=== PATIENT | female | born 1935 | race Caucasian/White ===

== ENCOUNTER 2018-05-25 12:46 | Inpatient (IN) | payer MEDICARE ==
[~2018-05-25] VITALS: Ht 165.1 cm; Wt 46.8 kg
[2018-05-25 13:20] LABS: BASOPHILS 0.7 % (0-2); HEMOGLOBIN 13.4 g/dL (12-16); IMMATURE GRANULOCYTES 0.2 % (0-5); LYMPHOCYTES 29.2 % (15-50); MCH 31.2 pg (26.0-34.0); MCHC 33.5 g/dL (31.0-37.0); MCV 93.2 fL (80.0-100.0); MEAN PLATELET VOLUME 10.8 fL (7.4-10.4); MONOCYTES 10.3 % (2-11); NEUTROPHILS 56.6 % (40-80); PLATELET COUNT 191 10x3/uL (130-400); RBC 4.29 10x6/uL (4.00-5.40); RDW 12.9 % (11.5-14.5)
[2018-05-25 13:36] LABS: ALBUMIN 3.7 g/dL (3.4-5.0); ANION GAP 13.1 mmol/L (8-16); BILIRUBIN - TOTAL 1.8 mg/dL (0.2-1.3); CALCIUM 8.9 mg/dL (8.5-10.1); CARBON DIOXIDE 30.1 mmol/L (21.0-32.0); CREATININE - SERUM 1.2 mg/dL (0.6-1.3); POTASSIUM - SERUM 3.2 mmol/L (3.5-5.1); PROTEIN - SERUM 7.7 g/dL (6.4-8.2)
[2018-05-25 13:45] LABS: THYROID STIMULATING HORMONE 3.71 uIU/mL (0.36-3.74)
[2018-05-25 14:32] LABS: INR 1.02 (0.85-1.17); PROTIME 12.9 SECONDS (11.6-15.0)
[2018-05-25 14:41] LABS: UDS - AMPHET NEGATIVE QUAL (NEGATIVE); UDS - BARB NEGATIVE QUAL (NEGATIVE); UDS - BENZO NEGATIVE QUAL (NEGATIVE); UDS - COCAINE NEGATIVE QUAL (NEGATIVE); UDS - OPIATE NEGATIVE QUAL (NEGATIVE); UDS - PCP NEGATIVE QUAL (NEGATIVE); UDS - THC NEGATIVE QUAL (NEGATIVE)
[2018-05-25 14:45] LABS: APPEARANCE HAZY (CLEAR); BILIRUBIN NEGATIVE (NEGATIVE); COLOR YELLOW (YELLOW); GLUCOSE NEGATIVE (NEGATIVE); KETONE NEGATIVE (NEGATIVE); NITRITE NEGATIVE (NEGATIVE); PROTEIN NEGATIVE (NEGATIVE); SPECIFIC GRAVITY 1.015 (1.005-1.020); UROBILINOGEN NORMAL (NORMAL)
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
[2018-05-25 14:47] LABS: ALBUMIN 3.7 g/dL (3.4-5.0); ALKALINE PHOSPHATASE 79 U/L (46-116); ALT (SGPT) 16 U/L (10-68); AMYLASE - SERUM 41 U/L (25-115); BILIRUBIN - DIRECT 0.31 mg/dL (0.00-0.30); BILIRUBIN - INDIRECT 1.47 mg/dL (0.00-1.00); BILIRUBIN - TOTAL 1.78 mg/dL (0.2-1.3); CHOL - HDL RATIO 2.7 ratio (2.3-4.1); CHOLESTEROL, TOTAL 199 mg/dL (0-200); CKMB 0.7 U/L (0.0-3.6); HDL CHOLESTEROL 74 mg/dL (32-96); LDL CHOLESTEROL 94 mg/dL (0-100); LDL-HDL RATIO 1.3 ratio (1.5-3.5); LIPASE 198 U/L (73-393); PRO BNP 451 pg/mL (0-450); PROTEIN - SERUM 7.8 g/dL (6.4-8.2); T4 THYROXINE 8.8 ug/dL (4.7-13.3); TRIGLYCERIDE 156 mg/dL (30-200); TROPONIN-I < 0.017 ng/mL (0.000-0.060)
[2018-05-25 14:49] LABS: RED CELLS - URINE 0-5 /hpf (0-5)
[2018-05-25 14:50] LABS: BACTERIA MODERATE /hpf (NONE SEEN); EPITHELIAL CELLS 0-5 /hpf (0-5)
[2018-05-25 15:28] LABS: ERYTHROCYTE SEDIMENTATION RATE 12 mm/hr (0-30)
[2018-05-25 16:42] VITALS: BP 144/69; BMI 17.2
[2018-05-25] MEDS ORDERED: NAMENDA10 MG PO (16:53)
[2018-05-25] MEDS ORDERED: BAYER CHEWABLE81 MG PO (18:34)
[2018-05-25] MEDS ORDERED: COLACE100 MG PO (18:34)
[2018-05-25] MEDS ORDERED: PRINIVIL20 MG PO (18:35)
[2018-05-25] MEDS ORDERED: PROSCAR5 MG PO (18:36)
[2018-05-25] MEDS ORDERED: PLAVIX75 MG PO (18:36)
[2018-05-25] MEDS ORDERED: NORCO 7.5/325 T1 TA1 PO (18:36)
--- NOTE | 2018-05-25 20:30 | NUR ---
RECEIVED IN HALLWAY. STANDING AT NURSES STATION. VERY CONFUSED. CALM AND COOPERATIVE WITH CARE AND ASSESSMENT. ENCOURAGE TO EXPRESS NEEDS. REDIRECT AND REORIENT NEEDED. SITTING ON THE EDGE OF HER BED AT THIS TIME. CONTINUE PLAN OF CARE
[2018-05-25 23:50] VITALS: BP 159/84
[2018-05-26 06:49] LABS: ANION GAP 11.1 mmol/L (8-16); CALCIUM 8.7 mg/dL (8.5-10.1); POTASSIUM - SERUM 3.1 mmol/L (3.5-5.1)
[2018-05-26 08:00] VITALS: BP 167/90
[2018-05-26 08:21] LABS: FOLATE (FOLIC ACID) - SERUM 14.6 ng/mL (>3.0)
--- NOTE | 2018-05-26 10:00 | NUR ---
RECEIVED PATIENT IN DINING ROOM FOR B'FAST, ALERT, RESTLESS, CONFUSED, STATED THAT SHE HAD TO GO HOME TO FEED HER DOG AND HER CAR IS IN THE PARKING LOT. MEMORY POOR. PT STATED THAT HER MEMORY IS POOR DUE TO HER HAVING ALZHEIMER'S. DISEASE. MEDS ADMIN PER ORDERS WITH COMPLETE MED COMPLIANCE NOTED. NO S/S ADVERSE REACTION NOTED. COOPERATIVE WITH GROUP AND STAFF REQUESTS. RE-DIRECTABLE AT THIS TIME. CONT POC INCLUDING MEDS AND GROUP THERAPY DIRECTED.
[2018-05-26 10:42] VITALS: BMI 17.1
--- NOTE | 2018-05-26 13:48 | NUR ---
PT PACING DAYROOM AND HALLWAY ATTEMPTING TO EXIT THE UNIT WHEN REDIRECTED PT BECOMES VERY UPSET. PT IS VERY ANXIOUS AT THIS TIME. PRN ATIVAN 0.5MG PO GIVEN PER ORDER. WILL CONTINUE TO MONITOR Q 15 MINUTES FOR SAFETY.
--- NOTE | 2018-05-26 14:30 | NUR ---
PRN MED EFFECTIVE AT THIS TIME. PT SITTING IN DAY ROOM WITH OTHER PEERS. NO ANXIETY OR AGGRESSION NOTED. WILL CONTINUE TO MONITOR Q 15 MINUTES FOR SAFETY.
[2018-05-26 19:45] VITALS: BP 137/79
--- NOTE | 2018-05-26 22:14 | NUR ---
RECEIVED IN DAYROOM. RESTING QUIETLY IN A CHAIR WITH PEERS AT HER SIDE. VERY CONFUSED. CALM AND COOPERATIVE WITH CARE AND ASSESSMENT. ENCOURAGE TO EXPRESS NEEDS. RESTING QUIETLY IN BED AT THIS TIME. CONTINUE PLAN OF CARE
[2018-05-27 07:12] LABS: ANION GAP 15.7 mmol/L (8-16); CALCIUM 8.7 mg/dL (8.5-10.1); CARBON DIOXIDE 23.9 mmol/L (21.0-32.0); POTASSIUM - SERUM 3.6 mmol/L (3.5-5.1)
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
--- NOTE | 2018-05-27 10:00 | NUR ---
RECEIVED IN HALLWAY WITH PEERS. PATIENT IS ALERT, CALM, BUT RESTLESS. SHE AMBULATES INDEPENDENTLY. FALL PRECAUTIONS IN PLACE. MONITOR FOR SAFETY AND BEHAVIOR CHANGES. CONTINUIE POC.
[2018-05-27 10:15] VITALS: BP 141/70
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
[2018-05-27 19:41] VITALS: BP 131/72
--- NOTE | 2018-05-27 20:39 | NUR ---
RECEIVED IN BEDROOM. RESTING IN BED WITH EYES CLOSED. RESPONDS TO VOICE. CALM AND COOPERATIVE WITH CARE AND ASSESSMENT. CONFUSED. REDIRECT AND REORIENT NEEDED. RESTING IN BED WITH EYES CLOSED AT THIS TIME. CONTINUE PLAN OF CARE.
--- NOTE | 2018-05-28 12:29 | PN ---
PATIENT:MILE LOZOYA MEDICAL RECORD: [id number] LOCATION:[facility] ADMISSION DATE: 05/25/18 PROGRESS NOTE DATE OF SERVICE: 05/27/2018 SUBJECTIVE: The patient's case was discussed with staff. She has no new complaint. OBJECTIVE: The patient only ate about half or a little more than half of what was presented to her yesterday. She did sleep reasonably well. She is taking Namenda for its memory enhancing properties. At this point, she is relatively calm and redirectable. It is clear she is going to need 96-eobb-s-day supervision. What is not clear is what environment would be the least restrictive. ASSESSMENT: No change in diagnoses. PLAN: I have reviewed her current medicines and will maintain them. Efforts will be made to assist her with placement in a safe and least restrictive environment. TRANSINT:[id number] Voice Confirmation ID: [id number] DOCUMENT ID: [id number] JERE PINK MD at 1229 CC: [id number] DICTATION DATE: 05/27/18918 LONE LEAD LINEMAN: 05/27/18 1138 ADM IN [facility] [address] [place] [address]
--- NOTE | 2018-05-28 18:09 | NUR ---
ORIENTED TO SELF ONLY.COMPLIANT WITH STAFF AND MEDS.WILL CONTINUE WITH PLAN OF CARE,MONITOR FOR CHANGES AND SAFETY.
[2018-05-28 20:00] VITALS: BP 124/70
--- NOTE | 2018-05-29 01:26 | NUR ---
B) Patient is alert and oriented to person, calm and cooperative I) Administered scheduled medications as ordered, monitored for safety R) Mediation compliant, pleasant and follow unit miliue P) Continue plan of care.
[2018-05-29 09:39] VITALS: BP 115/60
--- NOTE | 2018-05-29 12:55 | PN ---
PATIENT:MILE LOZOYA MEDICAL RECORD: [id number] LOCATION:[facility] Bee112 ADMISSION DATE: 05/25/18 PROGRESS NOTE DATE OF SERVICE: 05/28/2018 SUBJECTIVE: The patient's case was discussed with staff. She has no new complaint. OBJECTIVE: The patient is in good behavioral control with limited insight about her condition. She is extremely confused. Somehow she got her hands on a trash bag that contained some soiled diapers and was putting some of her clothing into it. She insisted this was her luggage and became very angry when staff attempted to take it from her. ASSESSMENT: No change in diagnoses. PLAN: The patient is severely impaired and certainly in need of 49-jrhs-t-day supervision. Her disorganized behaviors put her at a very high risk for potential harm. Her brother has decided that he is going to allow her to move in with him. She is in favor of this. At this point, the brother has been briefed about basic safety issues and he is going to make the necessary adjustments to the home including alarms on the doors and bolts that are high on the exterior door so she cannot get out of the house. He is also going to safety proof the oven and electrical outlets. I think if this level of improvement continues that she could be reasonably transitioned to the home soon. TRANSINT:[id number] Voice Confirmation ID: [id number] DOCUMENT ID: [id number] JERE PINK MD at 1255 CC: [id number] DICTATION DATE: 05/28/18 1238 SECRETARY OF STATE: 05/28/18 1359 ADM IN [id number] [place] [address]
--- NOTE | 2018-05-29 13:34 | NUR ---
B) PT IS ALERT AND ORIENTED TO PERSON. CALM AND COOPERATIVW WITH ASSESSMENT. I) PROVIDE PRESCRIBED MEDS R) MED COMPLIANT, PLEASANT AND SOCIAL WITH OTHER PEERS P) CPOC
[2018-05-29 13:43] VITALS: Ht 165.1 cm; Wt 46.8 kg
[2018-05-29 19:52] VITALS: BP 144/83
--- NOTE | 2018-05-29 21:29 | NUR ---
PATIENT IS CALM AND COOPERATIVE. PATIENT IS OBSERVED WHISPERING TO ANOTHER RESIDENT AND WHEN APPROACHED SHE STOPS WHISPERING. SHE IS OREINTED TO SELF. COMPLIANT WITH MEDS. APPEARANCE IS NEAT. NO ADVERSE SIDE EFFECTS NOTED. WILL CONTINUE TO FOLLOW POC
--- NOTE | 2018-05-30 08:46 | PN ---
PATIENT:MILE LOZYOA MEDICAL RECORD: [id number] LOCATION:[facility] ADMISSION DATE: 05/25/18 PROGRESS NOTE DATE OF SERVICE: 05/29/2018 SUBJECTIVE: The patient's case was discussed with staff. She has no new complaint. OBJECTIVE: The patient has a euthymic mood and is only partially oriented. She did not eat very well yesterday and she did sleep well. She is severely impaired and certainly is in need of 22-baph-w-day care. ASSESSMENT: No change in diagnoses. PLAN: I am going to start the patient on Namenda at a dose of 2.5 mg twice daily to assist with her cognitive impairment. She will be referred for long-term care and we are waiting for adult protective services to give us guidance. Apparently, there is no one available who can take responsibility for her on a 69-smmo-i-day basis, which is what she needs for her own safety. TRANSINT:[id number] Voice Confirmation ID: [id number] DOCUMENT ID: [id number] JERE PINK MD at 0846 CC: [id number] DICTATION DATE: 05/29/18 1309 STITCH MARKER: 05/29/18 1643 ADM IN [facility] [address] [place] [address]
[2018-05-30 09:51] VITALS: BP 116/89
--- NOTE | 2018-05-30 10:09 | NUR ---
RECEIVED PATIENT IN DINING ROOM FOR B'FAST, ALERT, CALM, COOPERATIVE, QUITE CONFUSED. MEDS ADMIN PER ORDERS WITH COMPLETE MED COMPLIANCE NOTED. COOPERATIVE WITH STAFF AND GROUP. CONT POC INCLUDING MEDS AND GROUP THERAPY DIRECTED.
[2018-05-30 10:10] VITALS: BP 116/85
--- NOTE | 2018-05-30 16:43 | NUR ---
FAMILY HERE TO VISIT PATIENT.
[2018-05-30 19:00] VITALS: BP 110/58
--- NOTE | 2018-05-30 22:06 | NUR ---
PATIENT IS VERY CONFUSED, SHE IS WORRIED ABOUT HER DOG AND SAYING SHE HAS LOST PARTS TO HER CAR AND LOOKING FOR HER CAR KEYS. HAS TO BE REDIRECTED TO HER ROOM A COUPLE OF TIMES. NO ADVERSE SIDE EFFECTS. WILL CONTINUE TO FOLLOW POC
[2018-05-31 07:00] VITALS: BP 109/62
--- NOTE | 2018-05-31 11:30 | PN ---
PATIENT:MILE LOZOYA MEDICAL RECORD: [id number] LOCATION:[facility]ulik[facility]ulce ADMISSION DATE: 05/25/18 PROGRESS NOTE DATE OF SERVICE: 05/30/2018 SUBJECTIVE: The patient's case was discussed with staff. She has no new complaint. OBJECTIVE: The patient is in good behavioral control with limited insight about her condition. She generally tolerates her medicines well. She is sleeping and eating reasonably well. She is extremely confused and the absence of recent agitation is because of the constant cueing, support, and redirection that she is receiving. She is most definitely in need of 72-iqbv-y-day care and it is my understanding that her brother is going to try to provide this. He has been educated about the disease and is going to make changes to his home for safety and security reasons and will be able to take her home once those things have been done. TRANSINT:[id number] Voice Confirmation ID: [id number] DOCUMENT ID: [id number] JERE PINK MD at 1130 CC: [id number] DICTATION DATE: 05/30/18 1003 CLASSROOM TECHNOLOGY TECHNICIAN: 05/30/18 1153 ADM IN [facility] [address] [place] [address]
[2018-05-31 20:12] VITALS: BP 126/68
--- NOTE | 2018-05-31 20:27 | NUR ---
PATIENT IS CONFUSED, NEEDS TO BE REDIRECTED AT TIMES, TAKES MEDS WELL, NO ADVERSE REACTIONS. WILL FOLLOW POC
[2018-06-01 07:00] VITALS: BP 113/71
--- NOTE | 2018-06-01 08:00 | NUR ---
ORIENTED TO SELF ONLY.SMILES FREQUENTLY,OBSERVED HELPING PEERS.COMPLIANT WITH STAFF AND MEDS.EASILY REDIRECTS.WILL CONTINUE WITH PLAN OF CARE,MONITOR FOR CHANGES AND SAFETY.
--- NOTE | 2018-06-01 09:41 | PN ---
PATIENT:MILE LOZOYA MEDICAL RECORD: [id number] LOCATION:[facility] ADMISSION DATE: 05/25/18 PROGRESS NOTE DATE OF SERVICE: 05/31/2018 SUBJECTIVE: The patient's case was discussed with staff. She has no new complaint. OBJECTIVE: The patient denies intent to harm herself or others. She is very disorganized with almost no short-term memory. ASSESSMENT: No change in diagnoses. PLAN: Current medicines have been reviewed. She is going to be maintained on them, but the dose of the Namenda is going to be increased to 5 mg twice daily. TRANSINT:[id number] Voice Confirmation ID: [id number] DOCUMENT ID: [id number] JERE PINK MD at 0941 CC: [id number] DICTATION DATE: 05/31/18 1133 TUNNEL MAN: 05/31/18 1558 ADM IN [facility] [address] [place] [address]
--- NOTE | 2018-06-01 12:57 | NUR ---
Nutrition follow-up: Diet: Regular PO intake ~75% average of meals Labs reviewed +BM RDN following.
--- NOTE | 2018-06-01 20:24 | NUR ---
PATIENT IS CONFUSED, SHE THINKS SHE HAS LOST HER PURSE, CAR, CAR PARTS, KEYS. PATIENT IS EASILY REDIRECTED AND PLEASANT THIS EVENING, SHE IS INTERACTING WITH THE OTHER RESIDENTS. COMPLIANT WITH MEDS, NO ADVERSE REACTION NOTED. WILL FOLLOW POC
[2018-06-01 21:52] VITALS: BP 134/62
[2018-06-02 08:00] VITALS: BP 112/85
--- NOTE | 2018-06-02 09:43 | PN ---
PATIENT:MILE LOZOYA MEDICAL RECORD: [id number] LOCATION:[facility] ADMISSION DATE: 05/25/18 PROGRESS NOTE DATE OF SERVICE: 06/01/2018 SUBJECTIVE: The patient's case was discussed with staff. She has no new complaint. OBJECTIVE: The patient is in good behavioral control with limited insight about her condition. She generally tolerates her medicines well. ASSESSMENT: No change in diagnoses. PLAN: Brief supportive and educational interventions were made. Long-term prognosis is guarded. TRANSINT:[id number] Voice Confirmation ID: [id number] DOCUMENT ID: [id number] JERE PINK MD at 0943 CC: [id number] DICTATION DATE: 06/01/18 1030 BLACK OXIDE COATING EQUIPMENT TENDER: 06/01/18 1051 ADM IN [place] [address] [place] [id number]
--- NOTE | 2018-06-02 11:00 | NUR ---
RECEIVED PATIENT IN DINING ROOM FOR B'FAST, ALERT, CALM, COOPERATIVE, AND CONFUSED. MEDS ADMIN PER ORDERS WITH COMPLETE MED COMPLIANCE NOTED. COOPERATIVE WITH GROUP AND STAFF REQUESTS, QUITE PLEASANT. CONT POC INCLUDING MEDS AND GROUP THERAPY DIRECTED.
[2018-06-02 21:00] VITALS: BP 123/69
--- NOTE | 2018-06-02 22:32 | NUR ---
B) Patient is alert and oriented to person and place, calm and cooperative, social with other patients, I) Admionistered scheduled mediations as ordered, monitored for safety R) Medication compliant, resting quietly in bed now, P) Continue plan of care.
[2018-06-03 08:00] VITALS: BP 119/55
--- NOTE | 2018-06-03 10:00 | NUR ---
RECEIVED PATIENT IN DINING ROOM FOR B'FAST, ALERT, CONFUSED, PLEASANT, COOPERATIVE, APPETITE GOOD. COMPLIANT WITH MEDS. NO DIFFICULTY TAKING MEDS WHOLE. COOPERATIVE WITH GROUP AND STAFF REQUESTS. CONT POC INCLUDING MEDS AND GROUP THERAPY DIRECTED.
--- NOTE | 2018-06-03 15:07 | PN ---
PATIENT:MILE LOZOYA MEDICAL RECORD: [id number] LOCATION:[facility] ADMISSION DATE: 05/25/18 PROGRESS NOTE DATE OF SERVICE: 06/02/2018 SUBJECTIVE: The patient's case was discussed with staff. She has no new complaint. OBJECTIVE: The patient is in good behavioral control with limited insight about her condition. She is significantly impaired. She has not been aggressive today. ASSESSMENT: No change in diagnoses. PLAN: Current medicines and therapies have been reviewed and will be maintained. Her long-term prognosis is guarded. I anticipate she can be transitioned out of the hospital soon if this level of improvement continues. TRANSINT:[id number] Voice Confirmation ID: [id number] DOCUMENT ID: [id number] JERE PINK MD at 1507 CC: [id number] DICTATION DATE: 06/02/18 0953 VP CARDIOVASCULAR SERVICE LINE: 06/02/18 1005 ADM IN [facility] [address] [place] [address]
[2018-06-03 19:25] VITALS: BP 144/69
--- NOTE | 2018-06-04 01:28 | NUR ---
B) Patient is alert and orineted to person and place, confused at times, pleasant and cooperative [facility] staff, I) Administered scheduled medications as ordered, monitored for safety R) mediation compliant, showered when she woke at 01:15 P) Continue plan of care.
--- NOTE | 2018-06-04 07:30 | NUR ---
B) PT IS ALERT AND ORIENTED TO SELF. REALITY ORIENTED NEEDED. I) PROVIDE PRESCRIBED MEDS R) MED COMPLIANT P) CPOC
[2018-06-04 10:19] VITALS: BP 121/63
--- NOTE | 2018-06-04 10:22 | NUR ---
WOUND CARE NURSE HERE FOR CONSULT. WOUND CARE NURSE CHANGED DRESSING TO LEFT HEEL AND ASSESS BUTTOCKS. WILL CONTINUE TO MONITOR Q 15 MINUTES FOR SAFETY.
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
--- NOTE | 2018-06-04 14:41 | NUR ---
PT IS VERY ANXIOUS AT THIS TIME. INTRUSIVE AT TIMES WITH OTHER PTS. PT UNABLE TO REDIRECT AT THIS TIME. PRN ATIVAN 0.5MG PO GIVEN PER PRN ORDER. WILL CONTINUE TO MONITOR Q 15 MINUTES FOR SAFETY.
--- NOTE | 2018-06-04 15:37 | NUR ---
BROTHER HERE TO VISIT WITH PATIENT.
--- NOTE | 2018-06-04 16:13 | NUR ---
SW SPOKE WITH PT'S BROTHER ABOUT DISCHARGE PLANNING. PT WILL BE DISCHARGED FRIDAY SO BROTHER COULD GET TOGETHER A FEW MORE THINGS AT HIS HOUSE. PT'S DOCTOR IS DR. SANTORO AND HER PHARMACY IS [facility].
--- NOTE | 2018-06-04 17:29 | NUR ---
PRN MED EFFECTIVE AT THIS TIME. PT RESTING IN DAYROOM WITH PEERS. WILL CONTINUE TO MONITOR Q 15 MINUTES FOR SAFETY.
--- NOTE | 2018-06-04 19:40 | NUR ---
RECEIVED IN DAYROOM. SITTING IN A CHAIR WITH PEERS BY HER SIDE. CALM AND COOPERATIVE WITH CARE AND ASSESSMENT. ENCOURAGE TO EXPRESS NEEDS. CONTINUES TO SIT QUIETLY IN CHAIR. CONTINUE PLAN OF CARE
[2018-06-04 20:05] VITALS: BP 118/54
[2018-06-05 08:38] VITALS: BP 110/56
--- NOTE | 2018-06-05 14:40 | NUR ---
CONFUSED AND DISORIENTED.COMPLIANT WITH STAFF AND MEDS.FRIENDLY AND HELPFUL WITH PEERS.WILL CONTINUE WITH PLAN OF CARE,MONITOR FOR SAFETY AND CHANGES.
--- NOTE | 2018-06-05 15:29 | PN ---
PATIENT:MILE LOZOYA MEDICAL RECORD: [id number] LOCATION:[facility] ADMISSION DATE: 05/25/18 PROGRESS NOTE DATE OF SERVICE: 06/04/2018 SUBJECTIVE: The patient's case was discussed with staff. She has no new complaint. OBJECTIVE: The patient is in good behavioral control with limited insight about her condition. She is tolerating her medicines well. Eye contact is poor. She has not been aggressive. ASSESSMENT: No change in diagnoses. PLAN: Current medicines have been reviewed. Long-term prognosis is guarded. Hopefully, the brother will have her home ready soon. TRANSINT:[id number] Voice Confirmation ID: [id number] DOCUMENT ID: [id number] JERE PINK MD at 1529 CC: [id number] DICTATION DATE: 06/04/18 1423 ENTRY WRITER: 06/04/18 1432 ADM IN [address] [place] [id number] [place] [address]
[2018-06-05 19:46] VITALS: BP 137/66
--- NOTE | 2018-06-06 00:30 | NUR ---
RECEIVED IN PATIENT ROOM. GETTING READY FOR BED. CALM AND COOPERATIVE WITH CARE AND ASSESSMENT. CONFUSED. ENCOURAGE TO EXPRESS NEEDS. REDIRECT AND REORIENT NEEDED. RESTING IN BED WITH EYES CLOSED AT THIS TIME. CONTINUE PLAN OF CARE.
[2018-06-06 08:00] VITALS: BP 123/66
--- NOTE | 2018-06-06 13:46 | PN ---
PATIENT:MILE LOZOYA MEDICAL RECORD: [id number] LOCATION:[facility] Bee112 ADMISSION DATE: 05/25/18 PROGRESS NOTE DATE OF SERVICE: 06/05/2018 SUBJECTIVE: The patient's case was discussed with staff. She has no new complaint. OBJECTIVE: The patient denies intent to harm herself or others. She has been somewhat delusional. She is insisting that another man here on the unit is her boyfriend and she wants to sleep in the same room with him and becomes angry when she is not allowed to do so. ASSESSMENT: No change in diagnoses. PLAN: The patient will be maintained on current medicines. I am going to raise the dose of the Namenda to 10 mg twice daily. She will be monitored for clinical changes associated with its use. I anticipate her brother will have arrangements made for her to return home soon. TRANSINT:[id number] Voice Confirmation ID: [id number] DOCUMENT ID: [id number] JERE PINK MD at 1346 CC: [id number] DICTATION DATE: 06/05/18 1541 PLEATER: 06/05/18 2302 ADM IN [place] [address] [place] [address]
--- NOTE | 2018-06-06 14:23 | NUR ---
B) The patient is awake, but she is confused. She is pleasant. She ambulates independently. I) Provide prescribed meds. R) The patient is compliant with meds and unit milieu. P) Continue POC.
[2018-06-06 21:16] VITALS: BP 157/81
--- NOTE | 2018-06-07 00:31 | NUR ---
RECEIVED IN HALLWAY OUTSIDE OF NURSES STATION. SOCIALIZING WITH STAFF AND PEERS. CALM AND COOPERATIVE WITH CARE AND ASSESSMENT. PLEASENTLY CONFUSED. ENCOURAGE TO EXPRESS NEEDS. REDIRECT AND REORIENT NEEDED. RESTING IN BED WITH EYES CLOSED AT THIS TIME. CONTINUE PLAN OF CARE.
[2018-06-07 08:00] VITALS: BP 103/61
--- NOTE | 2018-06-07 08:00 | NUR ---
RECEIVED IN HALLWAY WITH PEERS. ALERT AND AWAKE. AMBULATORY AT THIS TIME. CALM AND COOPERATIVE WITH MEDICATIONS AND UNIT MILIEU. FALL PRECAUTIONS IN PLACE. MONITOR FOR SAFETY. CONTINUE PLAN OF CARE.
[2018-06-07] MEDS ORDERED: VITAMIN B-121000 MCG PO (11:11)
--- NOTE | 2018-06-07 11:13 | PN ---
PATIENT:MILE LOZOYA MEDICAL RECORD: [id number] LOCATION:[facility] Re[facility] ADMISSION DATE: 05/25/18 PROGRESS NOTE DATE OF SERVICE: 06/06/2018 SUBJECTIVE: The patient's case was discussed with staff. She has no new complaint. OBJECTIVE: The patient is very impaired cognitively, but has not been aggressive. She is eating and sleeping reasonably well. ASSESSMENT: No change in diagnoses. PLAN: Supportive and educational interventions were made. Long-term prognosis is guarded. TRANSINT:[id number] Voice Confirmation ID: [id number] DOCUMENT ID: [id number] JERE PINK MD at 1113 CC: [id number] DICTATION DATE: 06/06/18 1455 OPS ANALYST: 06/06/18 1932 ADM IN [facility] [address] [place] [address]
--- NOTE | 2018-06-07 20:05 | NUR ---
RECEIVED IN BEDROOM. RESTING IN BED WITH EYES CLOSED. RESPONDS TO VOICE. CALM AND COOPERATIVE WITH CARE AND ASSESSMENT. ENCOURAGE TO EXPRESS NEEDS. REORIENT NEEDED. RESTING IN BED WITH EYES CLOSED. CONTINUE PLAN OF CARE
--- NOTE | 2018-06-07 21:32 | NUR ---
PT RESTING IN BED. VITALS STABLE, TOOK MEDS WITHOUT DIFFICULTY. DENIES PAIN AT THIS TIME. DENIES FURTHER CONCERNS AT THIS TIME. BED LOWERED AND LOCKED. CL IN REACH. WILL CONTINUE TO MONITOR.
[2018-06-07 22:06] VITALS: BP 120/60
--- NOTE | 2018-06-08 08:40 | NUR ---
REC'D PT IN HALLWAY SOCIALIZING WITH PEERS. MOOD IS CALM AND PLEASANT. CALM AND COOPERATIVE WITH ASSESSMENT. CONFUSION NOTED. FALL PRECAUTIONS IN PLACE. WILL CONTINUE TO MONITOR Q 15 MINUTES FOR SAFETY. WILL CONTINUE PLAN OF CARE.
[2018-06-08 09:32] VITALS: BP 130/71
--- NOTE | 2018-06-08 09:55 | NUR ---
THIS NURSE CALLED IN MEDICATIONS TO [facility] SPOKE WITH MAJOR. ALL PAPERWORK FAX AND COPY SENT WITH PT. F/U APPT, MEDICATIONS AND DISCHARGE PAPERWORK DISCUSSED WITH BROTHER AND PT. COPY OF DISCHARGE PAPERWORK SENT WITH PT AND BROTHER. AT TIME OF DISCHARGE PT IN STABLE CONDITION. NO S/SX OF DISTRESS NOTED. PT. DID RECIEVE MORMING MEDICATIONS. BROTHER AWARE.
--- NOTE | 2018-06-08 13:23 | PN ---
PATIENT:MILE LOZOYA MEDICAL RECORD: [id number] LOCATION:[facility] ADMISSION DATE: 05/25/18 PROGRESS NOTE DATE OF SERVICE: 06/07/2018 SUBJECTIVE: The patient's case was discussed with staff. She has no new complaint. OBJECTIVE: The patient denies intent to harm herself or others. She generally tolerates her medicines well. She is in good behavioral control. She is quite confused. ASSESSMENT: No change in diagnoses. PLAN: The patient will be transitioned out of the hospital tomorrow if this level of improvement continues. Follow up will be with her primary care snf physician. TRANSINT:[id number] Voice Confirmation ID: [id number] DOCUMENT ID: [id number] JERE PINK MD at 1323 CC: [id number] DICTATION DATE: 06/07/18 1110 CERTIFIED PERSONAL CHEF: 06/07/18 1514 DIS IN 06/08/18 [facility] [address] [place] [address]
--- NOTE | 2018-06-10 17:30 | DS ---
PATIENT:MILE LOZOYA :39 MEDICAL RECORD: [id number] DISCHARGE SUMMARY ADMISSION DATE: 05/25/18 DISCHARGE DATE: 06/08/18 IDENTIFYING DATA: The patient is 82 years old and she was admitted to the hospital on a voluntary basis because of confusion. The patient lives alone and was brought to the Emergency Room by her brother. The brother reported that she has a diagnosis of dementia and has become increasingly confused. She is not eating well. She cries almost all night every night and has lost a great deal of weight. She has medications at home, but does not take them or refuses to take them consistently. She is not supposed to drive, but she did so even though she has been ordered not to and apparently ran out of gas. She was quite confused on the side of the road and law enforcement notified Human Services and a embedded case manager from adult [employer] was involved in the case. The brother said he wanted to get her help, he just did not know what to do. She is only partially oriented, but was pleasant at the time of admission. HOSPITAL COURSE: The patient was admitted to the hospital and fully evaluated from both a medical, psychological, and social standpoint. The patient did show some significant confusion and even agitation through the course of the hospitalization, but was stabilized with both memory enhancing and mood stabilizing medications. I do not think she has a major depressive illness. She is just simply quite confused, does not have proper supervision or cueing or structuring to her environment. She was subsequently sent home with the brother who is going to have her live with him and he had made adjustments to his home and his schedule in order to be able to meet her needs. She was accepting of this. DISCHARGE DIAGNOSES: AXIS I: Senile dementia of the Alzheimer's type with behavioral disturbances. AXIS II: None. AXIS III: None. AXIS IV: Moderate. AXIS V: Global assessment of functioning is 35. PLAN: At the time of discharge, the patient was in good behavioral control with limited insight about her condition. She tolerates her medicines well. Her long-term prognosis is guarded. Brief supportive and educational interventions were made. Followup is to be with her primary care physician. TRANSINT:[id number] Voice Confirmation ID: [id number] DOCUMENT ID: [id number] JERE PINK MD at 1730 CC: [id number] DICTATION DATE: 06/09/18 1203 SANDBLASTER SUPERVISOR: 06/09/18 2245 DIS IN 06/08/18 [facility] [address] [place] [id number]
== END 2018-06-08 09:55 | disposition home or self-care (01) | DRG 57 ==
LOC: D.ER 12:46 → D.PSYCH 14:26 → D.EDHOLD 14:26 → D.PSYCH 14:29
PROVIDERS: Emergency Medicine; Family Medicine; ADMIT Psychiatry & Neurology Psychiatry
DX: G30.1 Alzheimer's disease with late onset (principal); F02.81 Dementia in other diseases classified elsewhere, unspecified severity, with behavioral disturbance; N39.0 Urinary tract infection, site not specified; B96.20 Unspecified Escherichia coli [E. coli] as the cause of diseases classified elsewhere; E87.6 Hypokalemia; E53.8 Deficiency of other specified B group vitamins